=== PATIENT | female | born 1970 | race Two or more races ===

== ENCOUNTER 2025-02-28 03:02 | Emergency (ER) | payer BC, SELFPAY ==
[2025-02-28] VITALS (12 sets, daily range): BP systolic 104–133; BP diastolic 51–87; PULSE 68–94; RESP 14–20; TEMP 36.3–37; O2SAT 98–100; BMI 31.6
--- NOTE | 2025-02-28 04:03 | EDNOTE_ITS ---
ED Wound/Laceration-RME/HPI General Chief Complaint: General Adult/Misc Complain Stated Complaint: BLEEDING RIGHT BREAST Arrival date/time: 02/28/25 03:02 RME / HPI RME / HPI narrative: Refer to MDM. Review of Systems Review of Systems Systems Reviewed: All systems reviewed, normal except as documented ED Exam Narrative Physical exam: Refer to [facility]. Course Course Course Narrative: CXR is ordered for determining the etiology of shortness of breath. Quality Measures none Orders Category Date Time Status CT Screening NOW Care 02/28/25 04:24 Active Insert IV NOW Care 02/28/25 03:43 Active Straight [In and Out Catheter] X1 Care 02/28/25 04:[address] chest abdomen pelvis w Stat Exams 02/28/25 04:24 Ordered XR chest 1V portable Stat Exams 02/28/25 04:23 Ordered Bilirubin,Direct Stat Lab 02/28/25 04:25 Ordered Blood Culture (Lab) Stat Lab 02/28/25 04:25 Ordered CBC Stat Lab 02/28/25 04:25 Ordered CMP [Comprehensive Metabolic Panel] Stat Lab 02/28/25 04:25 Ordered CRP [C-Reactive Protein] Stat Lab 02/28/25 04:25 Ordered ESR [Sed Rate (ESR)] Stat Lab 02/28/25 04:25 Ordered HCG Qualitative,Urine Stat Lab 02/28/25 04:25 Ordered HCG,Qualitative Serum Stat Lab 02/28/25 04:25 Ordered Lactate (Lactic Acid) Stat Lab 02/28/25 04:25 Ordered Magnesium Stat Lab 02/28/25 04:25 Ordered PT [Prothrombin Time with INR] Stat Lab 02/28/25 04:25 Ordered PTT [Partial Thromboplastin Time] Stat Lab 02/28/25 04:25 Ordered Procalcitonin Stat Lab 02/28/25 04:25 Ordered Type and Screen Stat Lab 02/28/25 04:25 Ordered UA, C/S IF [Urinalysis, C/S if Indicated] Stat Lab 02/28/25 04:25 Ordered Sodium Chloride 0.9% 1000 ml [Ns] 1,000 ml Med 02/28/25 04:23 Active IV 999 mls/hr Vital Signs Vital signs: Vital Signs Temperature 97.4 F 02/28/25 03:06 Pulse Rate 93 02/28/25 03:06 Respiratory Rate 19 02/28/25 03:06 Blood Pressure 133/87 H 02/28/25 03:06 Pulse Oximetry (%) 98 02/28/25 03:06 Oxygen Delivery Method Room Air 02/28/25 03:06 Wound / Laceration MDM Narrative MDM Narrative:: Scribe Attestation: I, Alexandria Moreno, am scribing for and in the presence of Dr. Martínez. Provider Notation: Although this document has been carefully reviewed, there may still be some phonetic and other typographical errors.? These errors are purely grammatical due to imperfections in the software program and should not be construed in any way to? compromise the substance of the patient's medical care during this visit. This section includes all my notes and documentations, including HPI, PE, and ED course. Rambo Martínez MD HPI: 54 y/o female with recent SHx of Breast Reduction, Brachioplasty, and Lipo 360 with J-Plasma presents with bleeding BL breast, R > L, several hours ago. Surgery was performed on 02/12/2025 in [place]. Denies significant pain. No fever or chills or bodyaches. No syncope or near syncope. No unusual fatigue or malaise. No other complaints. ROS: All negative except as documented in HPI. Physical Exam: General: Alert and oriented. No acute distress while remaining still. Eyes: Conjunctivae and lids clear. ENT: No nasal congestion. Neck: Supple. Heart: RRR. Lungs: No respiratory distress. Good air movement. No rhonchi, wheezing, rales. Chest: Breasts are edematous with ecchymoses and tenderness with bleeding from incisions. Abdomen: Soft with tenderness, difficult to localize. Normal bowel sounds. No distension. No rebound or guarding. Incisions seem clean and dry and intact. Skin: Warm and dry. Neuro: Alert and oriented X 3. I ordered IV fluid and diagnostic tests. At 6 AM on 02/28/2025, the care of the patient was transferred to Dr. Teixeira. Rambo Martínez MD Patient data External records reviewed:: [facility] previous records (No prior ED records available for review.) Clinical information provided by:: patient Social determinants that could affect healthcare access:: none Patient has the following chronic illnesses:: None reported How is presenting disease/condition affected by chronic disease/condition?: no chronic disease Evaluation data The following diagnostics were reviewed and interpreted by me:: lab results and radiology exam(s) Lab and/or radiology exams considered but not ordered:: None Interpretation Summary: Diagnostic tests are pending. Medications / Prescriptions Medications or Prescriptions considered but not ordered:: None Medication administrations:: Medication Administration History Sodium Chloride (Ns) 1,000 mls @ 999 mls/hr IV .Q1H1M ONE Stop: 02/28/25 05:23 IVF. Consultations Consultation(s) initiated? (list below): No Diagnosis Wound Differential Diagnosis: laceration, abscess and other (Cellulitis, Surgical wound complication) Most likely diagnosis given after review of the tests above:: Post-surgical bleeding Admission Indicated Admission indicated?: not indicated Explain why admission is indicated or not indicated:: Diagnostic tests are pending. Admission Request Was there a request for admission?: No Disposition Plan Disposition Plan: other (specify) (Signed out to Dr. Teixeira at 6 AM.) Discharge Plan Prescriptions/Referrals Referrals: No Primary/Family,Physician [Primary Care Provider] - In 1 week Problem List Clinical Impression: Post-op bleeding Patient/Caregiver Discharge Instructions Print Language: Romansh
--- NOTE | 2025-02-28 04:23 | XR_ITS ---
Examination: AP chest single view TECHNIQUE: AP portable upright chest single view Date and time: February 28 2025 0717 hours, comparison August 27, 2018 INDICATIONS: Shortness of breath chest pain today. FINDINGS: Normal heart size. The lungs are clear. Moderate osteopenia. IMPRESSION: No active disease.
--- NOTE | 2025-02-28 04:24 | XR_ITS ---
Examination: CT chest with intravenous contrast CT abdomen with intravenous contrast CT pelvis with intravenous contrast 2-D coronal and sagittal reconstructions Time of exam: February 28, 2025, 0637 hours INDICATIONS: Chest and abdominal pain after liposuction surgery 2 weeks ago CTDI: vol (mGy) : 22.64 DLP: (mGycm): 1032. Technique: Multiple axial images of the chest, abdomen and pelvis with intravenous contrast, 3.0 mm slice thickness. Images obtained post intravenous injection Isovue 370 60 cc. 2-D sagittal and coronal reconstructions. Low dose protocols were performed. One or more of the following dose reduction techniques were used; automated exposure control, adjustment of the mA and/or KV according to patient size, use of iterative reconstruction technique. Findings: Soft tissue mass right breast, 46 x 45 x 72 mm which may represent hematoma thoracic aorta pulmonary arteries intact No pneumonia or pulmonary edema or pleural disease No visualized liver or splenic lesion Distended gallbladder, no gallstones, there is minimal wall thickening fundus of the gallbladder No pancreatic or adrenal mass Suspicious for small areas of edema in both kidneys Aorta normal size No bowel obstruction Normal appendix Extensive edema in the subcutaneous fatty tissue surrounding the abdomen and pelvis Urinary bladder are intact No pelvic mass Osseous structures intact IMPRESSION: 4.6 x 4.5 x 7.2 cm mass in the right breast which may represent a hematoma, recommend bilateral breast sonography follow-up Distended gallbladder with possible gallbladder wall thickening, recommend gallbladder sonography follow-up Suspicious for bilateral pyelonephritis, clinical correlation advised Extensive presumed postop edema in the subcutaneous fatty tissues surrounding the abdomen and pelvis
[2025-02-28] MEDS: SODIUM CHLORIDE 0.9% 1000 ML 1,000 ML 999 ML IV (05:05)
[2025-02-28 05:27] LABS: Lactate (Lactic Acid) 2.8 mMol/L (0.4-2.0)
[2025-02-28 05:37] LABS: Sed Rate (ESR) 5 mm/hr (0-30)
[2025-02-28 05:40] LABS: Basophils # (Auto) 0.0 Thou/mm3 (0.0-0.2); Basophils % (Auto) 1 % (0-2.5); Eosinophils # (Auto) 0.2 Thou/mm3 (0.0-0.5); Eosinophils % (Auto) 2 % (0-10); Hematocrit 21.8 % (36.0-46.0); Immature Granulocytes Auto 0.02 Thou/mm3 (0.00-0.00); Lymphocytes # (Auto) 1.7 Thou/mm3 (1.0-4.8); Lymphocytes % (Auto) 25 % (10-50); Mean Corpuscular HGB Conc 29.4 g/dl (31.0-37.0); Mean Corpuscular Hemoglobin 30.9 pg (25.0-35.0); Mean Corpuscular Volume 105 fL (80-100); Monocytes # (Auto) 0.8 Thou/mm3 (0.0-0.8); Monocytes % (Auto) 12 % (0-12); Neutrophils # (Auto) 4.0 Thou/mm3 (1.8-7.7); Neutrophils % (Auto) 60 % (37-80); Nucleated Red Blood Cell # 0.00 Thou/mm3 (0.00-0.00); Nucleated Red Blood Cell % 0 /100 WBC (0); Platelet Count 571 Thou/mm3 (140-440); RDW Standard Deviation 78.3 fL (36.4-46.3); Red Blood Count 2.07 Miln/mm3 (4.00-5.20); White Blood Count 6.7 Thou/mm3 (3.6-11.0)
[2025-02-28 05:42] LABS: Bilirubin,Urine Negative (Negative); Blood,Urine 2+ (Negative); Clarity,Urine Clear (Clear/Hazy); Collection Type, Urine Clean Catch; Color,Urine Lt-Yellow (Lt Yel-Yel); Culture Indicated,Urine Not Indicated; Glucose, Urine Negative (Negative); Ketones,Urine Negative (Negative); Leukocyte Esterase,Urine Negative (Negative); Nitrite,Urine Negative (Negative); PH,Urine 6.0 (5.0-7.0); Protein,Urine Negative (Neg - Trace); RBC,Urine < 1 /hpf (0-3); Specific Gravity,Urine 1.016 (1.001-1.035); Squamous Epithelial Cell,Urine < 1 /hpf (0-5); Urobilinogen,Urine Negative mg/dL (0.0-1.0); WBC,Urine 1 /hpf (0-5)
[2025-02-28 05:49] LABS: Hemoglobin 6.4 g/dL (12.0-16.0)
[2025-02-28 05:56] LABS: HCG Qualitative,Urine Negative
[2025-02-28 05:57] LABS: HCG,Qualitative Serum Negative
[2025-02-28 06:01] LABS: INR 1.1 (0.9-1.3); Partial Thromboplastin Time 24.5 Seconds (22.0-36.0); Prothrombin Time 11.5 Seconds (9.0-12.2)
[2025-02-28 06:14] LABS: Alanine Aminotransferase 12 U/L (10-49); Albumin, Serum 3.3 gm/dL (3.5-5.0); Albumin/Globulin Ratio 1.6 (1.2-2.2); Alkaline Phosphatase 83 U/L (46-116); Anion Gap 11 (7-16); Aspartate Amino Transferase 18 U/L (0-34); BUN/Creatinine Ratio 24 Ratio (12-20); Bilirubin,Direct 0.1 mg/dL (0.0-0.3); Bilirubin,Total 0.4 mg/dL (0.3-1.2); Blood Urea Nitrogen 19 mg/dL (9-23); C-Reactive Protein < 0.5 mg/dL (0.0-0.9); Calcium 8.8 mg/dL (8.3-10.6); Calcium (Corrected) 9.4 mg/dL (8.5-10.1); Carbon Dioxide 25.1 mMol/L (20.0-31.0); Chloride 107 mMol/L (98-107); Creatinine (Component) 0.8 mg/dL (0.6-1.3); Estimated Creatinine Clearance 71.9 mL/min (>60); Globulin 2.1 gm/dL (2.3-3.5); Glucose 100 mg/dL (74-106); Magnesium 1.5 mg/dL (1.6-2.6); Osmolality,Calculated 287 (275-295); Potassium 4.0 mMol/L (3.4-5.1); Sodium 143 mMol/L (136-145); Total Protein 5.4 gm/dL (5.7-8.2); eGFR > 60 See Note
[2025-02-28 06:34] LABS: Procalcitonin 0.09 ng/ml (0.0-0.49)
--- NOTE | 2025-02-28 07:30 | PC.NURSE ---
In to assess pt. Pt resting quietly at this time. Pt assisted to bedside commode. Pt had a BM. at bedside. Call light placed within reach. Plan of care ongoing.
[2025-02-28 08:22] LABS: Reflex Lactate? Y
[2025-02-28 09:20] LABS: Lactic Acid, 3 HR 1.2 mMol/L (0.4-2.0)
--- NOTE | 2025-02-28 09:35 | EDNOTE_ITS ---
Emergency Room Addendum Addendum Narrative: 0600: Care assumed from Dr. Martínez, the previous shift emergency physician. Past medical, surgical, social and family history reviewed. Vitals and home medications reviewed. I will assume the care of the patient at this time, pending CT reoprt, labs, and final disposition. Please refer to the emergency department record for history and examination from initial visit.?The following addendum documentation note is intended to reflect any pending information, findings, or radiology results not included in the patient?s initial chart. We reviewed all the results, analysis, and treatment plans. Patient is amenable to discharge. Strict return precautions were outlined. RADIOLOGY Ordering Physician: Rambo Martínez MD Date of Service: 02/28/25 Procedure(s): CT chest abdomen pelvis w Accession Number(s): [id number] cc: Rambo Martínez MD; Kristian Smalls MD; NO PRIMARY/FAMILY,PHYSICIAN~ Examination: CT chest with intravenous contrast CT abdomen with intravenous contrast CT pelvis with intravenous contrast 2-D coronal and sagittal reconstructions Time of exam: February 28, 2025, 0637 hours INDICATIONS: Chest and abdominal pain after liposuction surgery 2 weeks ago CTDI: vol (mGy) : 22.64 DLP: (mGycm): 1032. Technique: Multiple axial images of the chest, abdomen and pelvis with intravenous contrast, 3.0 mm slice thickness. Images obtained post intravenous injection Isovue 370 60 cc. 2-D sagittal and coronal reconstructions. Low dose protocols were performed. One or more of the following dose reduction techniques were used; automated exposure control, adjustment of the mA and/or KV according to patient size, use of iterative reconstruction technique. Findings: Soft tissue mass right breast, 46 x 45 x 72 mm which may represent hematoma thoracic aorta pulmonary arteries intact No pneumonia or pulmonary edema or pleural disease No visualized liver or splenic lesion Distended gallbladder, no gallstones, there is minimal wall thickening fundus of the gallbladder No pancreatic or adrenal mass Suspicious for small areas of edema in both kidneys Aorta normal size No bowel obstruction Normal appendix Extensive edema in the subcutaneous fatty tissue surrounding the abdomen and pelvis Urinary bladder are intact No pelvic mass Osseous structures intact IMPRESSION: 4.6 x 4.5 x 7.2 cm mass in the right breast which may represent a hematoma, recommend bilateral breast sonography follow-up Distended gallbladder with possible gallbladder wall thickening, recommend gallbladder sonography follow-up Suspicious for bilateral pyelonephritis, clinical correlation advised Extensive presumed postop edema in the subcutaneous fatty tissues surrounding the abdomen and pelvis Dictated By:Kristian Smalls MD Signed By:<Electronically signed by Kristian Smalls MD in [place]>02/28/25 0731
--- NOTE | 2025-02-28 13:30 | PC.NURSE ---
PTS ABD BINDER SATURATED IN BLOOD. DISTRIBUTION CALLED FOR ABD BINDER. DISTRIBUTION TO BRING ABD BINDER.
[2025-02-28] MEDS: Magnesium Sulfate 2 GM Ivpb 2 GM/50 ML BAG IV (16:10)
--- NOTE | 2025-02-28 16:19 | PC.NURSE ---
ABD BINDER PLACED ONTO PT.
[2025-02-28 16:46] LABS: Path Review Blood Smear Sent to Pathologist
== END 2025-02-28 18:27 | disposition home or self-care (01) ==
PROVIDERS: Emergency Provider Emergency Medicine
DX: L76.22 Postprocedural hemorrhage of skin and subcutaneous tissue following other procedure (principal); R06.02 Shortness of breath; Y83.4 Other reconstructive surgery as the cause of abnormal reaction of the patient, or of later complication, without mention of misadventure at the time of the procedure
CPT/HCPCS: 36415; 36430; 71045; 71260; 74177; 80053; 81001; 81025; 82248; 83605; 83735; 84145; 84703; 85025; 85610; 85652; 85730; 86140; 86850; 86900; 86901; 86923; 87040; 96361; 96365; 96366; 99284; A4649; J3475; J7030; P9016; Q9967